=== PATIENT | female | born 1995 ===

== ENCOUNTER 2018-05-23 14:44 | Emergency (ER) | payer BC, OTHER ==
--- NOTE | 2018-05-23 15:07 | UC ---
Skin Complaint HPI - HPI Summary HPI Summary: 22 yo female presents with bug bites to left lower leg. She tells me that she was gone from her apartment for about 1 week for fall break and when she returned she slept in her bed - woke up the next day with bug bites to her left leg. She didn't think much of it, but this happened against last night. This morning she noticed some "red larva" in her bed that scared her. The sites on her leg are itchy, but not painful. She has been applying OTC hydrocortisone cream to the area. - History of Current Complaint Chief Complaint: UCSkin Time Seen by Provider: 05/23/18 15:06 Stated Complaint: BUG BITES Hx Obtained From: Patient Hx Last Menstrual Period: nexplanon Onset/Duration: Sudden Onset Current Severity: None Pain Intensity: 0 Pain Scale Used: 0-10 Numeric - Allergy/Home Medications Allergies/Adverse Reactions: Allergies Allergy/AdvReac Type Severity Reaction Status Date / Time amoxicillin [From Augmentin] Allergy Hives Verified 05/23/18 15:03 clavulanic acid Allergy Hives Verified 05/23/18 15:03 [From Augmentin] Home Medications: Home Medications Fluticasone Propionate [Flonase Allergy Relief] 50 mcg NA 05/23/18 [History] Hydrocortisone 1% CREAM* [Hytone Cream 1%*] 1 applic TOPICAL BID 05/23/18 [ History Confirmed 05/23/18] Review of Systems Constitutional: Negative Skin: Other - Bug bites left lower leg Respiratory: Negative Cardiovascular: Negative Neurovascular: Negative Neurological: Negative Psychological: Negative All Other Systems Reviewed And Are Negative: Yes PMH/Surg Hx/FS Hx/Imm Hx - Additional Past Medical History Additional PMH: None - Surgical History Surgical History: Yes Surgery Procedure, Year, and Place: ganglion cyst removed - Family History Known Family History: Positive: None - Social History Occupation: Student Lives: Alone Alcohol Use: Rare Substance Use Type: None Smoking Status (MU): Never Smoked Tobacco Physical Exam - Summary Physical Exam Summary: GENERAL: NAD. WDWN. No pain distress. SKIN: Left lower leg: Four 5mm mildly erythematous bug bites with mild edema. NTTP. No streaking, bleeding, or drainage. NECK: Supple. Nontender. No lymphadenopathy. CHEST: No accessory muscle use. Breathing comfortably and in no distress. CV: Pulses intact. Cap refill <2seconds NEURO: Alert. PSYCH: Age appropriate behavior. Triage Information Reviewed: Yes Vital Signs: Initial Vital Signs Temp 98.7 F 05/23/18 14:58 Pulse 88 05/23/18 14:58 Resp 18 05/23/18 14:58 BP 96/51 05/23/18 14:58 Pulse Ox 100 05/23/18 14:58 Vital Signs Reviewed: Yes Course/Dx - Course Course Of Treatment: Bug bites left lower leg. Do not appear infected. Do not appear typical of spider bites or bed bugs. Advised pt to keep applying hydrocortisone and wash her bedding well. F/u if her symptoms do not improve. - Diagnoses Provider Diagnoses: Bug bites left lower leg Discharge - Sign-Out/Discharge Documenting (check all that apply): Patient Departure All imaging exams completed and their final reports reviewed: No Studies - Discharge Plan Condition: Stable Disposition: HOME Patient Education Materials: Insect Bite or Sting (ED) Referrals: No Primary Care Phys,NOPCP [Primary Care Provider] - Additional Instructions: If you develop a fever, shortness of breath, chest pain, new or worsening symptoms - please call your PCP or go to the ED. 1) I am unsure what type of bug is biting you. 2) Please wash your bedding and any blankets/clothing items in your bedroom 3) May apply [id number] hydrocortisone cream to the bites on your leg to reduce itching and redness. - Billing Disposition and Condition Condition: STABLE Disposition: Home - Attestation Statements Provider Attestation: Per institutional requirements, I have reviewed the chart, however, I was not consulted specifically or made aware of this patient by the midlevel provider. I did not personally evaluate, interact with , or disposition this patient.
== END 2018-05-23 15:25 | disposition home or self-care (01) ==
LOC: UCEAST 14:44
DX: S80.862A Insect bite (nonvenomous), left lower leg, initial encounter (principal); W57.XXXA Bitten or stung by nonvenomous insect and other nonvenomous arthropods, initial encounter; Y92.032 Bedroom in apartment as the place of occurrence of the external cause; Z88.1 Allergy status to other antibiotic agents
CPT/HCPCS: 99201; G0463

== ENCOUNTER 2018-06-04 09:59 | Emergency (ER) | payer BC, OTHER ==
--- NOTE | 2018-06-04 11:31 | UC ---
Throat Pain/Nasal Dion HPI - HPI Summary HPI Summary: The patient is a 22-year-old female with the onset of sore throat and left sided neck pain that started yesterday a.m. She has had no fever or chills. A few months ago she had a left posterior cervical lymph node biopsied. It was reported as negative for any cancer concerns. She has had mono in the past. - History of Current Complaint Chief Complaint: UCRespiratory Stated Complaint: NECK PAIN SORE THROAT Time Seen by Provider: 06/04/18 11:12 Hx Obtained From: Patient Hx Last Menstrual Period: nexplanon Onset/Duration: Gradual Onset, Lasting Days Severity: Moderate Pain Intensity: 6 Pain Scale Used: 0-10 Numeric - Epiglottits Risk Factors Epiglottis Risk Factors: Negative - Allergies/Home Medications Allergies/Adverse Reactions: Allergies Allergy/AdvReac Type Severity Reaction Status Date / Time amoxicillin [From Augmentin] Allergy Hives Verified 06/04/18 11:02 clavulanic acid Allergy Hives Verified 06/04/18 11:02 [From Augmentin] PMH/Surg Hx/FS Hx/Imm Hx Previously Healthy: Yes - Surgical History Surgical History: Yes Surgery Procedure, Year, and Place: ganglion cyst removed - Family History Known Family History: Positive: Hypertension, Diabetes, Other - hypothyroidism - Social History Alcohol Use: Rare Substance Use Type: None Smoking Status (MU): Never Smoked Tobacco Review of Systems Constitutional: Negative Skin: Negative Eyes: Negative ENT: Sore Throat Respiratory: Negative Cardiovascular: Negative Gastrointestinal: Negative Genitourinary: Negative Motor: Negative Neurovascular: Negative Musculoskeletal: Negative Neurological: Negative Psychological: Negative All Other Systems Reviewed And Are Negative: Yes Physical Exam Triage Information Reviewed: Yes Appearance: Well-Appearing, No Pain Distress, Well-Nourished Vital Signs: Initial Vital Signs Temp 99.6 F 06/04/18 10:56 Pulse 85 06/04/18 10:56 Resp 18 06/04/18 10:56 BP 99/61 06/04/18 10:56 Pulse Ox 100 06/04/18 10:56 Vital Signs Reviewed: Yes Eyes: Positive: Conjunctiva Clear ENT: Positive: Hearing grossly normal, Pharynx normal. Negative: Nasal congestion, Nasal drainage, Tonsillar exudate, Trismus, Muffled voice, Hoarse voice Neck: Positive: Supple, Tenderness @ - left trapezius, Enlarged Nodes @ - left post cerv (small/soft and mobile) Respiratory: Positive: Lungs clear, Normal breath sounds, No respiratory distress, No accessory muscle use Cardiovascular: Positive: RRR, No Murmur Bowel Sounds: Positive: Present Musculoskeletal: Positive: ROM Intact, No Edema Neurological: Positive: Alert Psychological Exam: Normal Skin Exam: Normal Throat Pain/Nasal Course/Dx - Course Assessment/Plan: strep (-) - Differential Dx/Diagnosis Provider Diagnoses: pharyngitis. cervical strain Discharge - Sign-Out/Discharge Documenting (check all that apply): Patient Departure All imaging exams completed and their final reports reviewed: No Studies - Discharge Plan Condition: Stable Disposition: HOME Patient Education Materials: Pharyngitis (ED), Cervical Strain (ED), Soft Cervical Collar (ED) Referrals: No Primary Care Phys,NOPCP [Primary Care Provider] - Additional Instructions: recheck in 5 days if not better advil or aleve recheck for fever or worsening sore throat - Billing Disposition and Condition Condition: STABLE Disposition: Home
== END 2018-06-04 12:03 | disposition home or self-care (01) ==
LOC: UCEAST 09:59
DX: J02.9 Acute pharyngitis, unspecified (principal); S16.1XXA Strain of muscle, fascia and tendon at neck level, initial encounter; X58.XXXA Exposure to other specified factors, initial encounter; Y92.9 Unspecified place or not applicable; Z88.1 Allergy status to other antibiotic agents; Z88.0 Allergy status to penicillin
CPT/HCPCS: 87651; 99212; G0463